=== PATIENT | male | born 1945 | race Caucasian/White ===

== ENCOUNTER → 2016-12-19 | Outpatient (CLI) | payer OTHER | END | disposition home or self-care (01) | LOC: CATH 07:27 | DX: I25.10 Atherosclerotic heart disease of native coronary artery without angina pectoris (principal) ==

== ENCOUNTER → 2018-11-06 | Outpatient (CLI) | payer OTHER ==
[~2018-11-06] MED LIST: CENTRUM SILVER1 EAC2 PO; FLOMAX0.4 MG PO; HYDROCODONE-APA1 TA1 PO; LISINOPRIL10 MG PO; LOPRESSOR50 PO; LOVASTATIN 20 M20 MG PO; NEURONTIN 300300 M1 PO; NITROGLYCERIN0.4 MG SUBLING; NORCO 10-325 T1 EACH PO; NORVASC10 MG PO; PRILOSEC 20 MG20 MG PO; PROSTATE HEALT1 EAC1 PO; SYNTHROID25 MC1 PO; TART CHERRY CA1 EACH PO; VOLTAREN GEL 1100 G2 TOP
[2018-11-06 07:04] VITALS: BP 157/79
[2018-11-06 07:18] LABS: HEMATOCRIT 39.7 % (42.0-52.0); HEMOGLOBIN 13.6 gm/dL (14.0-18.0); MCH 30.4 pg (26.0-34.0); MCHC 34.2 g/dL (28.0-37.0); MCV 88.8 fL (80.0-100.0); RBC 4.47 mil/uL (4.50-6.00); RDW 12.9 % (10.5-14.5); WBC 7.9 thou/uL (4.0-11.0)
[2018-11-06 07:29] LABS: CALCIUM 9.1 mg/dL (8.5-10.1); CREATININE 1.1 mg/dL (0.7-1.3); POTASSIUM 3.9 mmol/L (3.5-5.1)
--- NOTE | 2018-11-06 07:42 | EKG ---
[address] [address] [facility] [place] [address] ELECTROCARDIOGRAM REPORT Name: MARIO DAVILA Room #: REG [facility]#: [id number] ������������������ Admission: 11/06/18 ������������������ Attend Phys: Andrey Núñez MD, Discharge: ������������������ Date of : 45 Report #: [id number] ����������������������������������������������������������������� [id number] THIS REPORT FOR: //name// [facility] Test Date: 2018-11-06 Test Time: 07:22:45 Pat Name: MARIO DAVILA Department: Room: Gender: Residential Team Leader: Brian MUSE : 1945 Requested By: Andrey Núñez Order Number: [id number] MD: Gatito Flores Measurements Intervals [place] Rate: 65 P: 43 OR: 181 QRS: 37 QRSD: 98 T: 34 QT: 422 QTc: 439 Interpretive Statements Normal tracing Compared to ECG 08/21/2003 08:04:25 Low QRS voltage now present Sinus bradycardia no longer present Electronically Signed On 11-06-2018 7:42:36 CDT by Gatito Flores [email or web address] ��������������������������������������������� <ELECTRONICALLY SIGNED> ���������������������������������������� By: Gatito Flores MD, [facility] ��������������������������������������������� 11/06/1842 1 1 Gatito Flores MD, [facility] /EPI
--- NOTE | 2018-11-07 16:00 | CATHLAB ---
[facility] [address] [place] [address] INVASIVE PROCEDURE REPORT Name: MARIO DAVILA Room #: REG Efe#: [id number] ������������� Admission: 11/06/18 ������������� Attend Phys: Andrey Núñez, Discharge: ��� ������������� ��� Date of : 45 Date of Service: 11/07/18 1559 �� Report #: [id number] �������� ��������������������������������������������[id number] THIS REPORT FOR: //name// APPROVED REPORT Study performed: 11/06/2018 07:25:07 Patient Details The patient is a 73 year-old male Event Personnel Andrey Núñez Speech Therapist Technician, Vero Gonsales Sudduth, Jeff RN RN, Justice Boyd Monitor Procedures Performed Left Heart Cath Coronaries, Bypass Grafts [id number] [facility] Ind[facility] Chest pain Procedure Narrative The Right Groin^ was infiltrated with 1% Lidocaine subcutaneous anesthesia. A PINNACLE 6FR Sheath #[id number] sheath was inserted into the RFA^. Coronary angiography was performed using coronary diagnostic catheters. The right coronary system was accessed and visualized with a JR4 catheter. The left coronary system was accessed and visualized with a JL4 catheter. The left ventricle was accessed and visualized with a PIGTAIL catheter. Left ventriculogram was performed in PRICE projection. An aortogram of the abdominal aorta was performed. Closure device was deployed with a Fr MYNXGRIP 6/7F #[id number]. The patient tolerated the procedure well and there were no complications associated with the procedure. There was no hematoma. Intraoperative Conscious Sedation Sedation start time: 07 Case end Time: 08 Versed 2 mg Fluoro Time: 11.22 minutes Dose: DAP 89853.00 cGycm2 1528 mGy Contrast Type and Amount: Omnipaque 140 ml Hemodynamics [facility] [address] [place] [address] INVASIVE PROCEDURE REPORT Name: MARIO DAVILA Room #: REG [facility]#: [id number] ������������� Admission: 11/06/18 ������������� Attend Phys: Andrey Núñez, Discharge: ��� ������������� ��� Date of : 45 Date of Service: 11/07/18 1559 �� Report #: [id number] �������� ��������������������������������������������[id number] The aortic pressure is 126/60 mmHg with a mean of 85 mmHg. The left ventricular pressure is 158/8 mmHg with a mean of mmHg. The left ventricular end diastolic pressure is 18 mmHg. Conclusion #1 normal left jugular size and systolic function EF 55% #2 abdominal aortogram revealing some tortuosity but no significant aneurysm mild iliac disease #3 the left main is moderately disease 50% giving rise into an ostial 50% circumflex OM the LAD occludes #4 EDMONDS to LAD is intact with mild irregularity this retrograde fills a diagonal and septal system. No occlusive disease #5 circumflex OM the ostial 50% narrowing first OM stent which is widely patent this is moderate in size the first OM is smaller and has an eccentric 70-80% but this is unchanged from the prior catheterization and then some filling of the inferior wall of the AV groove which is diffusely diseased #6 dominant right occluded #7 SVG is occluded presumably went to the PDA. The PDA is filled via the left system as there is no significant wall motion abnormality. #8 selective bilateral renal angiography 3040% right ostial disease left is widely patent Recommendations and plan: Would continue aggressive risk factor modification. There is no indication for intervention here. The PDA is filled via the left system. This anatomy is not significantly changed since the catheterization last year. There appears to be no significant myocardium at risk here Stable angina could be precipitated by this anatomy. ��������������������������������������������� <ELECTRONICALLY SIGNED> ���������������������������������������� By: Andrey Núñez MD, FACC ��������������������������������������������� 11/07/18 1559 1559 1559 Andrey Núñez MD, FACC /INF
== END | disposition home or self-care (01) ==
LOC: CATH 06:01
PROVIDERS: Internal Medicine Cardiovascular Disease
DX: I25.10 Atherosclerotic heart disease of native coronary artery without angina pectoris (principal); I10 Essential (primary) hypertension; E78.5 Hyperlipidemia, unspecified; I25.2 Old myocardial infarction; K21.9 Gastro-esophageal reflux disease without esophagitis; E03.9 Hypothyroidism, unspecified; E78.00 Pure hypercholesterolemia, unspecified; N40.0 Benign prostatic hyperplasia without lower urinary tract symptoms; Z98.890 Other specified postprocedural states; Z95.1 Presence of aortocoronary bypass graft; Z79.899 Other long term (current) drug therapy; Z87.891 Personal history of nicotine dependence